=== PATIENT | male | born 1965 | race Caucasian/White ===

== ENCOUNTER 2018-08-13 08:10 | Emergency (ER) | payer BC ==
--- NOTE | 2018-08-13 08:27 | EDM.PDOC ---
ED HPI GENERAL MEDICAL PROBLEM - General Chief Complaint: Chest Pain Stated Complaint: DIZZY Time Seen by Provider: 08/13/18 08:27 Source of Information: Reports: Patient, Family, RN, RN Notes Reviewed History Limitations: Reports: No Limitations - History of Present Illness INITIAL COMMENTS - FREE TEXT/NARRATIVE: Patient presents to the ED at [facility] for the evaluation of chest pain that started around 6am this morning. Patient states the pain feels like a pressure under the chest. No previous cardiac history. Patient denies any SOB. He does feel dizzy. No exertional symptoms. He states the pain does not radiate. He denies any GI symptoms. He states the pressure "gets really tight at its worse." Patient denies any focal neurological deficits. No diaphoreses. No palpitations. No recent illness. Has a history of constipation and diabetes. He did take his DM meds this morning. No weakness or fatigue. Duration: Waxing/Waning Location: Reports: Chest Quality: Reports: Pressure Severity: Moderate Improves with: Reports: None Worsens with: Reports: None Context: Denies: Activity, Sick Contact, Trauma Associated Symptoms: Reports: Other (Dizziness) Treatments [employer]EE [employer]PER[employer]OR: Reports: Other (see below) (None) - Related Data Allergies Allergy/AdvReac Type Severity Reaction Status Date / Time No Known Allergies Allergy Verified 08/13/18 08:23 ED ROS GENERAL - Review of Systems Review Of Systems: See Below Constitutional: Denies: Fever, Chills Respiratory: Denies: Shortness of Breath, Cough Cardiovascular: Reports: Chest Pain, Other (chest feels heavy). Denies: Palpitations GI/Abdominal: Denies: Abdominal Pain, Nausea, Vomiting Skin: Reports: No Symptoms Neurological: Reports: No Symptoms ED EXAM, GENERAL - Physical Exam Exam: See Below Exam Limited By: No Limitations General Appearance: Alert, No Apparent Distress Respiratory/Chest: No Respiratory Distress, Lungs Clear, Normal Breath Sounds Cardiovascular: Normal Peripheral Pulses, Regular Rate, Rhythm Peripheral Pulses: 2+: Radial (L), Radial (R) GI/Abdominal: Normal Bowel Sounds, Soft, Non-Tender Neurological: Alert, Oriented Skin Exam: Warm, Dry, Intact, Normal Color EKG INTERPRETATION EKG Date: 08/13/18 (#1) Time: 08:16 Rhythm: NSR Rate (Beats/Min): 84 [place]: Normal P-Wave: Present QRS: RBBB ST-T: Normal QT: Normal DE/PQ Interval: 0.14 Comparison: NA - No Prior EKG EKG Interpretation Comments: EKG #1: 1. Sinus Rhythm 2. Possible left atrial enlargement 3. Incomplete RBBB EKG #2: 1. Sinus Rhythm 2. Incomplete RBBB Course - Vital Signs Last Recorded V/S: Last Vital Signs Temp 36.2 C 08/13/18 08:10 Pulse 68 08/13/18 09:21 Resp 14 08/13/18 09:21 BP 129/76 08/13/18 09:21 Pulse Ox 97 08/13/18 09:21 - Orders/Labs/Meds Orders: Active Orders 24 hr Category Date Time Status EKG 12 Lead [EKG Documentation Completion] [] STAT Care 08/13/18 08:29 Active EKG 12 Lead [EKG Documentation Completion] [] STAT Care 08/13/18 09:16 Active Heparin Sodium/0.45% NaCl [Heparin 25,000 Units in 1/2 Med 08/13/18 09:45 Active NS 500 ML] 25,000 units in 500 ml IV TITRATE Sodium Chloride 0.9% [Saline Flush] Med 08/13/18 09:17 Active 10 ml FLUSH ASDIRECTED PRN Peripheral IV Insertion Adult [OM.PC] Routine Oth 08/13/18 09:17 Ordered Medication Orders Heparin Sodium/Sodium Chloride (Heparin 25,000 Units In 1/2 Ns 500 Ml) 25,000 units in 500 mls @ 20 mls/hr IV TITRATE ROSENDA; Protocol Sodium Chloride (Saline Flush) 10 ml FLUSH ASDIRECTED PRN PRN Reason: Keep Vein Open Labs: Laboratory Tests 08/13/18 08/13/18 08/13/18 Range/Units 08:40 08:40 08:46 WBC 5.4 (4.0-10.0) x10^3/uL RBC 4.58 (4.5-6.0) x10^6/uL Hgb 15.3 (14.0-18.0) g/dL Hct 43.1 (40.0-52.0) % MCV 94.1 H (78.0-93.0) fL MCH 33.4 H (26.0-32.0) pg MCHC 35.5 (32.0-36.0) g/dL RDW Coeff of Humberto 12.2 (10.0-15.0) % Plt Count 193 (130-400) x10^3/uL Neut % (Auto) 52.6 (50.0-80.0) % Lymph % (Auto) 36.8 (25.0-50.0) % [place] % (Auto) 8.5 (2.0-11.0) % Eos % (Auto) 1.7 (0.0-4.0) % Baso % (Auto) 0.4 (0.2-1.2) % Sodium 143 (136-145) mmol/L Potassium 4.0 (3.5-5.1) mmol/L Chloride 105 (98-107) mmol/L Carbon Dioxide 26 (21-32) mmol/L Anion Gap 16.0 (10-20) mmol/L BUN 10 (7-18) mg/dL Creatinine 1.0 (0.70-1.30) mg/dL Est Cr Clr Drug Dosing TNP Estimated GFR (MDRD) > 60 Glucose 141 H (74-106) mg/dL Calcium 8.8 (8.5-10.1) mg/dL Magnesium 1.7 L (1.8-2.4) mg/dL Creatine Kinase 67 (39-308) U/L POC Troponin I 0.18 H* (0.00-0.08) ng/mL POC Result Comm Called critical res Meds: Medications Generic Name Dose Route Start Last Admin Trade Name Freq PRN Reason Stop Dose Admin Heparin Sodium/Sodium Chloride 25,000 units in 500 mls @ 20 mls/hr 08/13/18 09 :45 Heparin 25,000 Units In 1/2 Ns 500 Ml IV TITRATE ROSENDA Protocol 1,000 UNITS/HR Sodium Chloride 10 ml 08/13/18 09:17 Saline Flush FLUSH ASDIRECTED PRN Keep Vein Open Discontinued Medications Generic Name Dose Route Start Last Admin Trade Name Freq PRN Reason Stop Dose Admin Al Hydroxide/Mg Hydroxide 30 ml 08/13/18 08:51 08/13/18 08:56 Gi Cocktail PO 08/13/18 08:52 30 ml ONETIME ONE Administration Aspirin 324 mg 08/13/18 08:57 08/13/18 08:12 Aspirin PO 08/13/18 08:58 324 mg ONETIME ONE Administration Heparin Sodium (Porcine) 4,000 units 08/13/18 09:38 Heparin Sodium IVPUSH 08/13/18 09:39 ONETIME ONE Morphine Sulfate 2 mg 08/13/18 09:38 Morphine IVPUSH 08/13/18 09:39 ONETIME ONE Nitroglycerin 0.4 mg 08/13/18 09:17 08/13/18 09:18 Nitrostat SL 08/13/18 09:18 0.4 mg ONETIME ONE Administration - Radiology Interpretation Free Text/Narrative:: CXR: No acute cardiopulmonary process; mild hyperinflation See scanned report in EMR for details Departure - Departure Time of Disposition: 09:50 Disposition: DC/Tfer to [facility] Reason for Transfer *Q: Other Condition: Good Clinical Impression: Elevated troponin Chest pain Qualifiers: Chest pain type: unspecified Qualified Code(s): R07.9 - Chest pain, unspecified Forms: Interfacility Transfer [facility] ED Communication - ED Communication Date/Time Date: 08/13/18 Time Called: 09:23 - Discussed Case With (1) Discussed Case With (1): Admitting Provider (Dr. Soto, Hospitalist [facility]) - Conversation Summary Admitting Provider Agreed to Patient's Admission: Yes Patient Aware of Amendments fo Care Plan: Yes - Problem List Review Problem List Initiated/Reviewed/Updated: Yes - My Orders Last 24 Hours: My Active Orders 08/13/18 08:29 EKG 12 Lead [EKG Documentation Completion] [RC] STAT 08/13/18 09:16 EKG 12 Lead [EKG Documentation Completion] [RC] STAT 08/13/18 09:17 Sodium Chloride 0.9% [Saline Flush] 10 ml FLUSH ASDIRECTED PRN Peripheral IV Insertion Adult [OM.PC] Routine 08/13/18 09:45 Heparin Sodium/0.45% NaCl [Heparin 25,000 Units in 1/2 NS 500 ML] 25,000 units in 500 ml IV TITRATE - Assessment/Plan Last 24 Hours: My Active Orders 08/13/18 08:29 EKG 12 Lead [EKG Documentation Completion] [RC] STAT 08/13/18 09:16 EKG 12 Lead [EKG Documentation Completion] [RC] STAT 08/13/18 09:17 Sodium Chloride 0.9% [Saline Flush] 10 ml FLUSH ASDIRECTED PRN Peripheral IV Insertion Adult [OM.PC] Routine 08/13/18 09:45 Heparin Sodium/0.45% NaCl [Heparin 25,000 Units in 1/2 NS 500 ML] 25,000 units in 500 ml IV TITRATE Assessment:: Chest Pain Elevated Troponin Plan[facility] due to elevated troponin. Additional medications given prior to departure. Report given. Patient will be sent ALS ground. Patient agrees with transfer and wishes to proceed.
[2018-08-13] MEDS ORDERED: GI Cocktail Oral Solution 30 ML PO ONE (08:51)
--- NOTE | 2018-08-13 08:53 | CR ---
[id number] RAD/RAD Chest PA And Lateral EXAM: FRONTAL AND LATERAL CHEST INDICATION: Chest pain. COMPARISON: None. DISCUSSION: The lungs are hyperinflated, but clear. The heart is normal in size. Partially imaged fusion hardware at the cervicothoracic junction of the spine. IMPRESSION: 1. Mild hyperinflation. No acute findings. Esdras Quintero MD 08/13/18 0852 Thank you for allowing us to participate in the care of your patient.
[2018-08-13] MEDS ORDERED: Aspirin 81 MG Tab.Chew PO ONE (08:57)
[2018-08-13 09:09] LABS: CHLORIDE,CL 105 mmol/L (98-107); SODIUM,NA 143 mmol/L (136-145)
[2018-08-13] MEDS ORDERED: Sodium Chloride 0.9% 10 ML Syringe FLUSH PRN (09:17)
[2018-08-13] MEDS ORDERED: Nitroglycerin 0.4 MG Tab.SL SL ONE (09:17)
[2018-08-13] MEDS ORDERED: Morphine 2 MG/ML Syringe IVPUSH ONE (09:38)
[2018-08-13] MEDS ORDERED: Heparin Sodium 5,000 Units/ML Vial IVPUSH ONE (09:38)
[2018-08-13] MEDS ORDERED: Heparin Sodium/0.45% NaCl 25,000 UNITS/500 ML BAG IV SCH (09:45)
== END 2018-08-13 10:20 | disposition short-term general hospital (02) ==
LOC: VM.ED 08:10
DX: R07.9 Chest pain, unspecified (principal); R79.89 Other specified abnormal findings of blood chemistry
CPT/HCPCS: 36415; 71046; 80048; 82550; 83735; 84484; 85025; 93005; 96365; 96375; 96376; 99285; A9270; J1644; J2270

== ENCOUNTER 2023-03-03 23:09 | Emergency (ER) | payer BC, MEDICAID ==
[2023-03-03 23:53] LABS: BASOPHILS PERCENT AUTO 0.4 % (0.2-1.2); EOSINOPHILS ABSOLUTE AUTO 0.1 x10^3/uL (0.0-0.5); HEMATOCRIT 46.1 % (40.0-52.0); HEMOGLOBIN 16.7 g/dL (14.0-18.0); IMMATURE GRAN ABSOLUTE AUTO 0.01 x10^3/uL (0.00-0.07); LYMPHOCYTES ABSOLUTE AUTO 1.6 x10^3/uL (1.0-4.8); LYMPHOCYTES PERCENT AUTO 23.8 % (25.0-50.0); MEAN CORPUSCULAR HEMOGLOBIN 34.4 pg (26.0-32.0); MEAN CORPUSCULAR HGB CONC 36.2 g/dL (32.0-36.0); MEAN CORPUSCULAR VOLUME 95.1 fL (78.0-93.0); MONOCYTES ABSOLUTE AUTO 0.7 x10^3/uL (0.0-0.8); MONOCYTES PERCENT AUTO 9.8 % (2.0-11.0); NEUTROPHILS ABSOLUTE AUTO 4.5 x10^3/uL (1.8-7.7); NEUTROPHILS PERCENT AUTO 64.9 % (50.0-80.0); PLATELET COUNT,PLT 217 x10^3/uL (130-400); RED BLOOD CELL COUNT 4.85 x10^6/uL (4.5-6.0); WHITE BLOOD CELL COUNT,WBC 6.9 x10^3/uL (4.0-10.0)
[2023-03-04 00:06] LABS: APPEARANCE,URINE CLEAR (CLEAR); BILIRUBIN,URINE SMALL (NEGATIVE); COLOR,URINE YELLOW (YELLOW); GLUCOSE,URINE 500 mg/dL (NEGATIVE); KETONES,URINE 15 mg/dL (NEGATIVE); LEUKOCYTE ESTERASE,URINE NEGATIVE (NEGATIVE); NITRITE,URINE NEGATIVE (NEGATIVE); OCCULT BLOOD,URINE NEGATIVE (NEGATIVE); PH,URINE 5.5 (5.0-8.0); PROTEIN,URINE NEGATIVE (NEGATIVE)
[2023-03-04 00:07] LABS: A/G RATIO 1.05; ALANINE AMINOTRANSFERASE,ALT 26 U/L (16-63); ALBUMIN 3.9 g/dL (3.4-5.0); ALKALINE PHOSPHATASE 106 U/L (46-116); ANION GAP 17.4 mmol/L (5-15); ASPARTATE AMNIOTRANSFERASE,AST 23 U/L (15-37); BILIRUBIN TOTAL 0.4 mg/dL (0.2-1.0); BLOOD UREA NITROGEN,BUN 15 mg/dL (7-18); C-REACTIVE PROTEIN < 0.50 mg/dL (<=0.50); CALCIUM 9.6 mg/dL (8.5-10.1); CARBON DIOXIDE,CO2 25 mmol/L (21-32); CHLORIDE,CL 100 mmol/L (98-107); CREATININE 0.9 mg/dL (0.70-1.30); EST CRCL DRUG DOSING (CG) 94.63 mL/min; ESTIMATED GFR 100 mL/min (>=60); GLUCOSE RANDOM 94 mg/dL (70-99); POTASSIUM,K 3.4 mmol/L (3.5-5.1); PROTEIN TOTAL,TP 7.6 g/dL (6.4-8.2); SODIUM,NA 139 mmol/L (136-145)
== END 2023-03-04 00:22 ==
LOC: VM.ED 23:09
DX: E11.649 Type 2 diabetes mellitus with hypoglycemia without coma (principal)
CPT/HCPCS: 36415; 80053; 81003; 82947; 85025; 86140; 99283; 99284

== ENCOUNTER 2023-03-21 08:48 | Observation (INO) | payer OTHER, MEDICAID ==
[2023-03-21] MEDS ORDERED: Valproate Sodium 1,000 MG in Sodium Chloride 0.9% 100 ML IV ONE ×2 (08:50→10:02)
[2023-03-21 09:08] LABS: HEMATOCRIT 49.9 % (40.0-52.0); HEMOGLOBIN 17.6 g/dL (14.0-18.0); MEAN CORPUSCULAR HEMOGLOBIN 34.6 pg (26.0-32.0); MEAN CORPUSCULAR HGB CONC 35.3 g/dL (32.0-36.0); PLATELET COUNT,PLT 226 x10^3/uL (130-400); RED BLOOD CELL COUNT 5.09 x10^6/uL (4.5-6.0); WHITE BLOOD CELL COUNT,WBC 10.6 x10^3/uL (4.0-10.0)
[2023-03-21 09:25] LABS: BAND PERCENT MAN 2 % (0-6); EOSINOPHILS ABSOLUTE MAN 0.1 x10^3/uL (0.0-0.5); EOSINOPHILS PERCENT MAN 1 % (0-4); LYMPHOCYTES ABSOLUTE MAN 2.9 x10^3/uL (1.0-4.8); LYMPHOCYTES PERCENT MAN 15 % (25-50); MONOCYTES ABSOLUTE MAN 0.3 x10^3/uL (0.0-0.8); MONOCYTES PERCENT MAN 3 % (2-11); NEUTROPHILS ABSOLUTE MAN 7.3 x10^3/uL (1.8-7.7); PLATELET COUNT ESTIMATE ADEQUATE; SEG NEUTROPHILS PERCENT MAN 67 % (50-80); TOXIC GRANULATION 1+ SLIGHT; VACUOLATED NEUTROPHILS 1+ SLIGHT
[2023-03-21 09:26] LABS: PROTHROMBIN TIME 10.9 SEC (9.5-12.2); PTT,PARTIAL THROMBOPLSTIN TIME 26.3 SEC (23.6-33.6)
[2023-03-21 09:37] LABS: A/G RATIO 1.03; ALANINE AMINOTRANSFERASE,ALT 21 U/L (16-63); ALBUMIN 3.9 g/dL (3.4-5.0); ALKALINE PHOSPHATASE 110 U/L (46-116); ASPARTATE AMNIOTRANSFERASE,AST 19 U/L (15-37); BILIRUBIN TOTAL 0.4 mg/dL (0.2-1.0); BLOOD UREA NITROGEN,BUN 15 mg/dL (7-18); CALCIUM 9.3 mg/dL (8.5-10.1); CARBON DIOXIDE,CO2 14 mmol/L (21-32); CHLORIDE,CL 98 mmol/L (98-107); CREATININE 1.7 mg/dL (0.70-1.30); GLUCOSE RANDOM 205 mg/dL (70-99); MAGNESIUM 2.7 mg/dL (1.8-2.4); POTASSIUM,K 4.7 mmol/L (3.5-5.1); PROTEIN TOTAL,TP 7.7 g/dL (6.4-8.2); SODIUM,NA 137 mmol/L (136-145); TSH ULTRASENSITIVE 3.271 uIU/mL (0.358-3.74)
[2023-03-21 09:39] LABS: ANION GAP 29.7 mmol/L (5-15); C-REACTIVE PROTEIN < 0.50 mg/dL (<=0.50); ESTIMATED GFR 47 mL/min (>=60)
[2023-03-21] MEDS ORDERED: LORazepam 2 MG/ML SDV ONE (09:45)
[2023-03-21] MEDS ORDERED: LORazepam 2 MG/ML SDV IVPUSH ONE (09:46)
[2023-03-21 09:48] LABS: ETHANOL BLOOD MEDICAL < 3 mg/dL (0-3)
[2023-03-21] MEDS ORDERED: Sodium Chloride 0.9% 1,000 ML IV ONE (10:54)
[2023-03-21 11:21] LABS: APPEARANCE,URINE TURBID (CLEAR); BILIRUBIN,URINE NEGATIVE (NEGATIVE); COLOR,URINE PINK (YELLOW); GLUCOSE,URINE 500 mg/dL (NEGATIVE); KETONES,URINE 15 mg/dL (NEGATIVE); LEUKOCYTE ESTERASE,URINE NEGATIVE (NEGATIVE); NITRITE,URINE NEGATIVE (NEGATIVE); OCCULT BLOOD,URINE LARGE (NEGATIVE); PROTEIN,URINE 100 mg/dL (NEGATIVE); UROBILINOGEN,URINE 0.2 EU/dL (0.2)
[2023-03-21 11:24] LABS: AMPHETAMINES SCREEN, URINE NEGATIVE (NEGATIVE); BARBITURATE SCREEN,URINE NEGATIVE (NEGATIVE); BENZODIAZEPINES SCREEN,URINE NEGATIVE (NEGATIVE); COCAINE METABOLITES,URINE NEGATIVE (NEGATIVE); METHADONE SCREEN, URINE NEGATIVE (NEGATIVE); METHAMPHETAMINE SCREEN, URINE NEGATIVE (NEGATIVE); OXYCODONE SCREEN,URINE NEGATIVE (NEGATIVE); PCP SCREEN,URINE NEGATIVE (NEGATIVE); THC SCREEN,URINE 50 NG/ML NEGATIVE (NEGATIVE)
[2023-03-21 11:25] LABS: BUPRENORPHINE SCREEN,URINE NEGATIVE (NEGATIVE)
[2023-03-21 11:27] LABS: BACTERIA,URINE NOT SEEN /HPF (NOT SEEN); HYALINE CASTS,URINE FEW; MUCUS,URINE RARE /LPF (NOT SEEN); RBC,URINE >100 /HPF (NOT SEEN); SQUAMOUS EPITHELIAL CELLS,UR RARE /HPF (NOT SEEN); WBC,URINE NOT SEEN /HPF (NOT SEEN)
[2023-03-21] MEDS ORDERED: Flumazenil 0.1 MG/ML 5 ML MDV IVPUSH PRN ×2 (11:59→12:18)
[2023-03-21] MEDS ORDERED: LORazepam 2 MG/ML SDV IVPUSH PRN ×2 (11:59→12:18)
[2023-03-21] MEDS ORDERED: Ondansetron 4 MG/2 ML SDV IVPUSH PRN (12:04)
[2023-03-21] MEDS: Sodium Chloride 0.9% 1,000 ML IV SCH ×2 (13:18→21:22)
[2023-03-21] MEDS ORDERED: FLU (Fluarix Quad) QS2023-24(6MOS UP)/PF 60 MCG/0.5 ML Syringe IM ONE (15:00)
[2023-03-21] MEDS ORDERED: Divalproex Sodium Delayed-Release 250 MG Tab.CR PO SCH (18:00)
[2023-03-21] MEDS ORDERED: LORazepam 1 MG Tab PO PRN (23:14)
[2023-03-22] MEDS: Sodium Chloride 0.9% 1,000 ML IV SCH ×2 (05:25→13:14)
[2023-03-22] MEDS: Omeprazole 20 MG Cap.CR PO SCH (06:31)
[2023-03-22] MEDS ORDERED: amLODIPine 2.5 MG Tab ONE (07:29)
[2023-03-22] MEDS: GLIPIZIDE 10 MG PO SCH ×2 (08:14→18:03)
[2023-03-22] MEDS: Aspirin 81 MG Tab.Chew PO SCH (08:15)
[2023-03-22] MEDS: DIVALPROEX SODIUM 500 MG PO SCH ×2 (08:15→12:08)
[2023-03-22] MEDS: amLODIPine 5 MG Tab (OWN SUPPLY) PO SCH (08:16)
[2023-03-22] MEDS: FLUOXETINE 20 MG PO SCH (08:16)
[2023-03-22] MEDS: Metoprolol Succinate 50 MG Tab.ER (OWN SUPPLY) PO SCH (08:17)
[2023-03-22] MEDS ORDERED: metFORMIN 500 MG Tab PO SCH (09:00)
[2023-03-22] MEDS ORDERED: Empagliflozin 25 MG Tab PO SCH (09:00)
[2023-03-22] MEDS ORDERED: BUPROPION 150 MG PO SCH (09:00)
[2023-03-22] MEDS ORDERED: atorvaSTATin 10 MG Tab PO SCH (09:00)
[2023-03-22 09:42] LABS: BASOPHILS PERCENT AUTO 0.2 % (0.2-1.2); EOSINOPHILS PERCENT AUTO 0.2 % (0.0-4.0); HEMATOCRIT 40.7 % (40.0-52.0); HEMOGLOBIN 14.4 g/dL (14.0-18.0); IMMATURE GRAN ABSOLUTE AUTO 0.01 x10^3/uL (0.00-0.07); LYMPHOCYTES PERCENT AUTO 19.8 % (25.0-50.0); MEAN CORPUSCULAR HEMOGLOBIN 34.1 pg (26.0-32.0); MEAN CORPUSCULAR HGB CONC 35.4 g/dL (32.0-36.0); MEAN CORPUSCULAR VOLUME 96.4 fL (78.0-93.0); MONOCYTES ABSOLUTE AUTO 0.9 x10^3/uL (0.0-0.8); MONOCYTES PERCENT AUTO 9.3 % (2.0-11.0); NEUTROPHILS PERCENT AUTO 70.4 % (50.0-80.0); PLATELET COUNT,PLT 165 x10^3/uL (130-400); RED BLOOD CELL COUNT 4.22 x10^6/uL (4.5-6.0)
[2023-03-22 10:02] LABS: A/G RATIO 1.07; ALBUMIN 3.2 g/dL (3.4-5.0); ANION GAP 14.7 mmol/L (5-15); BILIRUBIN TOTAL 0.5 mg/dL (0.2-1.0); CALCIUM 8.2 mg/dL (8.5-10.1); CREATININE 0.9 mg/dL (0.70-1.30); EST CRCL DRUG DOSING (CG) 94.63 mL/min; POTASSIUM,K 3.7 mmol/L (3.5-5.1); PROTEIN TOTAL,TP 6.2 g/dL (6.4-8.2)
[2023-03-23] MEDS: Omeprazole 20 MG Cap.CR PO SCH (06:52)
[2023-03-23] MEDS ORDERED: amLODIPine 2.5 MG Tab ONE (08:00)
[2023-03-23] MEDS: DIVALPROEX SODIUM 500 MG PO SCH ×2 (08:08→15:14)
[2023-03-23] MEDS: FLUOXETINE 20 MG PO SCH (08:09)
[2023-03-23] MEDS: amLODIPine 5 MG Tab (OWN SUPPLY) PO SCH (08:09)
[2023-03-23] MEDS: Metoprolol Succinate 50 MG Tab.ER (OWN SUPPLY) PO SCH (08:10)
[2023-03-23] MEDS: GLIPIZIDE 10 MG PO SCH (08:10)
[2023-03-23] MEDS: Aspirin 81 MG Tab.Chew PO SCH (08:15)
[2023-03-23] MEDS ORDERED: DIVALPROEX SODIUM 500 MG PO ONE (13:15)
== END 2023-03-23 14:00 | disposition home or self-care (01) ==
LOC: VM.ED 08:48 → VM.MS 11:38
PROVIDERS: ADMIT Physician Assistant; ATTEND Physician Assistant
DX: R56.9 Unspecified convulsions (principal); I10 Essential (primary) hypertension; E11.9 Type 2 diabetes mellitus without complications; I25.10 Atherosclerotic heart disease of native coronary artery without angina pectoris; K21.9 Gastro-esophageal reflux disease without esophagitis; E78.00 Pure hypercholesterolemia, unspecified; Z79.84 Long term (current) use of oral hypoglycemic drugs; Z79.82 Long term (current) use of aspirin; Z79.899 Other long term (current) drug therapy
CPT/HCPCS: 36415; 70450; 80053; 80164; 80305; 80307; 81001; 82947; 83735; 84443; 85025; 85610; 85730; 86140; 97116; 97161; 97165; 97535; 99223; 99239; A9270; J2060; J3490; J7030; 96361; 96374; 96375; 96376; 99285-25; G0378